=== PATIENT | male | born 1990 | race American Indian/Alaskan Native ===

== ENCOUNTER 2018-05-17 07:54 | Emergency (ER) | payer MEDICAID, OTHER ==
[2018-05-17 08:09] VITALS: RESP 18
--- NOTE | 2018-05-17 08:48 | ED PDOC ---
Arrival/HPI - General Chief Complaint: ENT Problem Time Seen by Provider: 05/17/18 08:09 Historian: Patient - History of Present Illness Narrative History of Present Illness (Text): 05/17/18 08:44 27 year old M with no significant pmh presents to the emergency department complaining of a left sublingual drained mass and left neck swelling. Patient recalls discarge from left sublingual mass after eating. Patient denies chewing tobacco and having a history of present complaint. Patient denies any fevers, chills, headache, dizziness, chest pain, shortness of breath, dyspnea on exertion, cough, abdominal pain, nausea, vomiting, diarrhea, back pain, or any other complaint. Time/Duration: > week Symptom Onset: Sudden Symptom Course: Unchanged Activities at Onset: Light Context: Home Associated Symptoms (Text): 05/17/18 09:33 Approximately 2-week history of a left sublingual mass that drains when he eats. No dyspnea or dysphasia. No toothache. No sore throat. No fever or chills. He has never experienced this previously. He states that he now feels something on his left anterior neck also. Past Medical History - Provider Review Nursing Documentation Reviewed: Yes - Infectious Disease Hx of Infectious Diseases: None - Psychiatric Hx Substance Use: No Family/Social History - Physician Review Nursing Documentation Reviewed: Yes Family/Social History: No Known Family HX Smoking Status: Never Smoked Hx Alcohol Use: Yes Frequency of alcohol use: Socially Hx Substance Use: No Allergies/Home Meds Allergies/Adverse Reactions: Allergies No Known Allergies Allergy (Verified 05/17/18 08:09) Review of Systems - Physician Review All systems were reviewed & negative as marked: Yes - Review of Systems Constitutional: absent: Fatigue, Fevers ENT: Other ( left sublingual mass). absent: TMJ Pain, Sore Throat, Rhinorrhea, Epistaxis, Sinus Congestion Respiratory: absent: SOB, Cough, Wheezing Cardiovascular: absent: Chest Pain Gastrointestinal: absent: Abdominal Pain, Diarrhea, Nausea, Vomiting Musculoskeletal: absent: Arthralgias, Back Pain, Neck Pain (left neck swelling), Joint Swelling, Myalgias Neurological: absent: Headache, Dizziness, Focal Weakness Physical Exam Vital Signs Reviewed: Yes Vital Signs Temp Pulse Resp BP Pulse Ox 05/17/18 08:05 98.5 F 60 18 130/70 100 05/17/18 07:55 98.5 F 60 18 130/70 100 Temperature: Afebrile Blood Pressure: Normal Pulse: Regular Respiratory Rate: Normal Appearance: Positive for: Well-Appearing, Non-Toxic, Comfortable Pain Distress: None Mental Status: Positive for: Alert and Oriented X 3 - Systems Exam Head: Present: Atraumatic, Normocephalic Pupils: Present: PERRL Extroacular Muscles: Present: EOMI Conjunctiva: Present: Normal Ears: Present: NORMAL TM, Normal Canal. No: Erythema, TM Bulging Mouth: Present: Moist Mucous Membranes, Normal Lips, Normal Tounge (Left sublingual edema. No sublingual discharge or erythema), Normal Teeth. No: Drooling, Trismus Pharnyx: No: ERYTHEMA, EXUDATE, TONSILS ENLARGED, Peritonsilar Swelling, Uvular Deviation, Soft Palate/Uvular Edema Neck: Present: Normal Range of Motion. No: MIDLINE TENDERNESS, Paraspinal Tenderness, Lymphadenopathy Respiratory/Chest: Present: Clear to Auscultation, Good Air Exchange. No: Respiratory Distress, Accessory Muscle Use Cardiovascular: Present: Regular Rate and Rhythm, Normal S1, S2. No: Murmurs Abdomen: No: Tenderness, Distention, Peritoneal Signs Back: Present: Normal Inspection Upper Extremity: Present: Normal Inspection. No: Cyanosis, Edema Lower Extremity: Present: Normal Inspection. No: Edema Neurological: Present: GCS=15, CN II-XII Intact, Speech Normal, Motor Func Grossly Intact Skin: Present: Warm, Dry, Normal Color. No: Rashes Psychiatric: Present: Alert, Oriented x 3, Normal Insight, Normal Concentration Medical Decision Making ED Course and Treatment: 05/17/18 08:51 Impression: 27 year old M presents to the emergency department complaining of a left sublingual drained mass and left neck swelling. Plan: --Labs --Saline IV --CT neck -- Reassess and disposition Prior Visits: Notes and results from previous visits were reviewed. Progress Notes: 05/17/18 11:[address] Cornelius who requests prednisone and antibiotics and he will follow-up in the office. - RAD Interpretation Radiology Orders: 05/17/18 08:38 NECK SOFT TISSUE W/CONTRAST [CT] Stat CT scan of the neck is read by the radiologist shows a left sublingual mass and calcification. No Alfred's angina. Business Integration Analyst: Radiologist - PA / COMPLEX MANAGER / Resident Statement / has reviewed & agrees with the documentation as recorded. - Scribe Statement The provider has reviewed the documentation as recorded by the Sarika Simmons All medical record entries made by the Sarika were at my direction and personally dictated by me. I have reviewed the chart and agree that the record accurately reflects my personal performance of the history, physical exam, medical decision making, and the department course for this patient. I have also personally directed, reviewed, and agree with the discharge instructions and disposition. Disposition/Present on Arrival - Present on Arrival Any Indicators Present on Arrival: No History of DVT/PE: No History of Uncontrolled Diabetes: No Urinary Catheter: No History of Decub. Ulcer: No History Surgical Site Infection Following: None - Disposition Have Diagnosis and Disposition been Completed?: Yes Diagnosis: Submandibular duct obstruction, Submandibular gland swelling Disposition: HOME/ ROUTINE Disposition Time: 11:02 Patient Plan: Discharge Condition: GOOD Discharge Instructions (ExitCare): Salivary Gland Removal Additional Instructions: Moist heat. Follow-up with ENT. Follow-up in ER as needed. Prescriptions: Amoxicillin/Clavulanate [Augmentin 875 MG-125 MG] 1 tab PO Q12 #20 tab Prednisone [Deltasone] 20 mg PO DAILY #5 tablet Referrals: FAMILY PROVIDER,NO [Primary Care Provider] - Follow up with primary Aiden Cornelius DO [Staff Provider] - Follow up with primary Forms: [facility] (Martiniquais)
[2018-05-17 09:08] LABS: BASO # 0.03 K/mm3 (0.0-2.0); BASO % 0.6 % (0.0-3.0); EOS # 0.2 (0.0-0.7); EOS % 3.2 % (1.5-5.0); HEMOGLOBIN 13.7 g/dL (14.0-18.0); LYMPH # 1.9 (1.2-3.4); LYMPH % 36.5 % (22.0-35.0); MEAN CELL VOLUME 92.6 fl (80.0-105.0); MEAN CORPUSCULAR HEMOGLOBIN 30.6 pg (25.0-35.0); MEAN CORPUSCULAR HGB CONC 33.1 g/dl (31.0-37.0); MEAN PLATELET VOLUME 11.2 fl (7.0-11.0); MONO # 0.3 (0.1-0.6); MONO % 4.9 % (1.0-6.0); RBC 4.47 10^6/uL (3.5-6.1); RED CELL DISTRIBUTION WIDTH 12.6 % (11.5-14.5); WHITE BLOOD COUNT 5.3 10^3/uL (4.5-11.0)
[2018-05-17 09:28] LABS: ALBUMIN 4.2 g/dL (3.0-4.8); ALT/SGPT 20 U/L (7-56); AST/SGOT 48 U/L (17-59); BLOOD UREA NITROGEN 12 mg/dL (7-21); CALCIUM 9.5 mg/dL (8.4-10.5); GFR NON-AFRICAN AMERICAN > 60
[2018-05-17] MEDS ORDERED: Iohexol 350 MG/100 ML VIAL ONE (09:34)
--- NOTE | 2018-05-17 10:51 | CT ---
Date of service: 05/17/2018 PROCEDURE: CT NECK WITH CONTRAST HISTORY: Alfred's angina COMPARISON: None available. TECHNIQUE: CT of the neck with intravenous contrast. Coronal and sagittal reformats generated. Intravenous contrast dose: 96 cc Omnipaque 350 Radiation dose: Total exam DLP = 445.43 mGy-cm. This CT exam was performed using one or more of the following dose reduction techniques: Automated exposure control, adjustment of the mA and/or kV according to patient size, and/or use of iterative reconstruction technique. FINDINGS: NASOPHARYNX: Unremarkable. SUPRAHYOID NECK: There is a large elliptical shaped calcification seen in the left submandibular region which appears to be located in the distribution of the left submandibular duct (Strasburg's duct).. There is also enhancing elliptical shaped focus that is located just inferior to the larger elliptical shaped calculus that measures approximately 2.1 x 11 point 1 cm. This could represent an inflammatory focus- phlegmon. Parapharyngeal space and retropharyngeal space. INFRAHYOID NECK: Unremarkable larynx, hypopharynx, and supraglottic space. Vocal cords intact. MASS: As above. GLANDS: Parotid and submandibular glands as above.. Normal size thyroid gland, without nodule. LYMPH NODES: Few small nonspecific bilateral cervical lymph nodes are present none of which appear pathologically enlarged. CERVICAL SPINE: No fracture or focal lesion. VASCULAR STRUCTURES: Unremarkable. OTHER FINDINGS: None. IMPRESSION: There is a large elliptical shaped calcification seen in the left submandibular region which appears to be located in the distribution of the left submandibular duct (Elif's duct).. There is also enhancing elliptical shaped focus that is located just inferior to the larger elliptical shaped calculus that measures approximately 2.1 x 11 point 1 cm. This could represent an inflammatory focus- phlegmon.. Slightly heterogeneous appearance of the left submandibular gland compared to the right side.
[2018-05-17 11:15] VITALS: BP 132/75; PULSE 79; TEMP 97.6; O2SAT 98
== END 2018-05-17 11:15 | disposition home or self-care (01) ==
LOC: ED 07:54
DX: K11.8 Other diseases of salivary glands (principal); R59.0 Localized enlarged lymph nodes
CPT/HCPCS: 70491; 80053; 85025; 99283; Q9967